=== PATIENT | male | born 1970 | race African-American/Black ===

== ENCOUNTER 2017-08-20 04:11 | Emergency (ER) | payer MEDICAID ==
[~2017-08-20] VITALS: Ht 170.2 cm; Wt 77.0 kg
[~2017-08-20 04:11] MED LIST: CLON0.2T PO; REN800 PO; SEE MED REC
[2017-08-20 05:05] VITALS: BP 212/140
== END 2017-08-20 05:55 | disposition left against medical advice (07) ==
LOC: ER 04:11
DX: Z53.21 Procedure and treatment not carried out due to patient leaving prior to being seen by health care provider (principal); F12.10 Cannabis abuse, uncomplicated; I12.0 Hypertensive chronic kidney disease with stage 5 chronic kidney disease or end stage renal disease; N18.6 End stage renal disease; Z99.2 Dependence on renal dialysis